=== PATIENT | female | born 1980 | race Caucasian/White ===

== ENCOUNTER 2024-03-06 21:42 | Emergency (ER) | payer BC ==
[~2024-03-06] VITALS: Ht 160 cm; Wt 63.5 kg
[2024-03-06] MEDS ORDERED: ONDANSETRON HCL/PF 4 MG/2 ML VIAL ONE (22:55)
[2024-03-06] MEDS: IV NS 0.9% 1,000 ML BAG IV ONE (23:00)
[2024-03-06] MEDS: ONDANSETRON HCL/PF 4 MG/2 ML VIAL IVP ONE (23:00)
[2024-03-06 23:18] LABS: BASOPHILS % (AUTO) 0.6 % (0.0-2.0); EOSINOPHILS % (AUTO) 0.3 % (0.0-6.0); HEMATOCRIT 37 % (33-45); HEMOGLOBIN 12.7 g/dL (11.5-14.8); LYMPHOCYTES % (AUTO) 13.8 % (20.0-44.0); MEAN CORPUSCULAR HEMOGLOBIN 32 PG (26.0-33.0); MEAN CORPUSCULAR HGB CONC 35 g/dl (31.0-36.0); MEAN CORPUSCULAR VOLUME 91 fL (82-100); MONOCYTES # (AUTO) 0.3 K/uL (0.1-1.30); MONOCYTES % (AUTO) 4.1 % (2.0-12.0); NEUTROPHILS # (AUTO) 6.1 K/uL (1.8-8.9); NEUTROPHILS % (AUTO) 81.2 % (43.0-81.0); PLATELET COUNT (AUTO) 225 K/uL (150-450); RED BLOOD CELL COUNT(AUTO) 4.05 MIL/uL (4.0-5.2); RED CELL DISTRIBUTION WIDTH 12.5 % (11.5-15.0); WHITE BLOOD COUNT (AUTO) 7.5 K/uL (4.3-11.0)
[2024-03-06 23:31] LABS: CREATININE 0.8 mg/dL (0.6-1.3); POTASSIUM 3.2 mmol/L (3.5-5.1)
[2024-03-06 23:35] LABS: BILIRUBIN,DIRECT 0.2 mg/dL (0.0-0.2); BILIRUBIN,TOTAL 0.6 mg/dL (0.2-1.0); INR 1.01 (0.91-1.10); PARTIAL THROMBOPLASTIN TIME 28.9 SEC (24.3-34.3); PROTHROMBIN TIME 10.7 SECS (9.2-11.1); TOTAL PROTEIN, SERUM 7.1 g/dL (6.4-8.2)
[2024-03-07 00:30] VITALS: BP 122/71; TEMP 98.4; O2SAT 98
== END 2024-03-07 00:31 | disposition home or self-care (01) ==
LOC: ER 21:47
DX: A04.72 Enterocolitis due to Clostridium difficile, not specified as recurrent (principal); R11.2 Nausea with vomiting, unspecified
CPT/HCPCS: 99283; 96374; 96361; 85025; 80048; 83690; 80076; 36415; 85730; 82962; J2405; J7030